=== PATIENT | female | born 1970 | race Caucasian/White ===

== ENCOUNTER 2016-12-08 05:39 | Day surgery (SDC) | payer BC ==
[~2016-12-08] VITALS: Ht 162.6 cm; Wt 104.3 kg
[~2016-12-08 05:39] MED LIST: SYNTHROID200 MCG PO; VENTOLIN HFA18 GM IH
[2016-12-08 06:00] VITALS: BP 111/64
[2016-12-08 15:57] VITALS: BP 103/58
[2016-12-08 19:30] VITALS: BP 113/62
[2016-12-08 23:21] VITALS: BP 90/53
[2016-12-09 03:20] VITALS: BP 97/49
[2016-12-09 07:16] VITALS: BP 95/52
[2016-12-09 07:24] LABS: HEMATOCRIT 30.7 % (36.0-46.0); MCH 33.2 PG (29.0-34.0); MCHC 34.2 G/DL (30.0-36.0); MCV 97.2 FL (83-99); MEAN PLAT.VOLUME 10.8 uM^3 (9.5-12.4); PLATELET COUNT 177 K/uL (156-360); RBC DIS.WIDTH-SD 46.5 % (39-53); WHITE BLOOD COUNT 10.6 K/uL (4.1-10.2)
[2016-12-09 07:26] LABS: RED BLOOD COUNT 3.16 M/uL (3.80-5.20)
[2016-12-09 07:45] LABS: ANION GAP 5 MEQ/L (2-14); CHLORIDE 108 MEQ/L (99-109); GFR ESTIMATE (CALCULATED) > 59 mL/min/; GLUCOSE 107 mg/dL (70-99); POTASSIUM 4.4 MEQ/L (3.7-5.4); SAMPLE HEMOLYSIS CHECK 0; SAMPLE ICTERIC CHECK 0; SAMPLE LIPEMIA CHECK 0; SODIUM 138 MEQ/L (136-147); UREA NITROGEN (BUN) 8 mg/dL (9-23)
[2016-12-09] MEDS ORDERED: ENDOCET 5-3251 EACH PO (09:38)
[2016-12-09] MEDS ORDERED: IBUPROFEN800 MG PO (09:38)
[2016-12-09 11:10] VITALS: BP 115/61
[2016-12-09 15:15] VITALS: BP 96/54
== END 2016-12-09 18:18 | disposition home or self-care (01) ==
LOC: SDC 05:39 → 2EASTP 10:50 → 2SOUTH 10:50 → SDC 14:16 → 2EASTP 15:52
PROVIDERS: Obstetrics & Gynecology
PROC: 0TSD0ZZ Reposition Urethra, Open Approach (ICD-10-PCS; principal; 2016-12-08)
PROC: 0UT74ZZ Resection of Bilateral Fallopian Tubes, Percutaneous Endoscopic Approach (ICD-10-PCS; principal; 2016-12-08)
PROC: 0UT14ZZ Resection of Left Ovary, Percutaneous Endoscopic Approach (ICD-10-PCS; principal; 2016-12-08)
PROC: 0UT94ZZ Resection of Uterus, Percutaneous Endoscopic Approach (ICD-10-PCS; principal; 2016-12-08)
PROC: 0UTC4ZZ Resection of Cervix, Percutaneous Endoscopic Approach (ICD-10-PCS; principal; 2016-12-08)
DX: D25.9 Leiomyoma of uterus, unspecified (principal); N39.3 Stress incontinence (female) (male); N80.0 Endometriosis of uterus; N72 Inflammatory disease of cervix uteri; N87.9 Dysplasia of cervix uteri, unspecified; N83.8 Other noninflammatory disorders of ovary, fallopian tube and broad ligament; N83.201 Unspecified ovarian cyst, right side; E03.9 Hypothyroidism, unspecified; E06.3 Autoimmune thyroiditis; N93.8 Other specified abnormal uterine and vaginal bleeding; E78.00 Pure hypercholesterolemia, unspecified; E66.9 Obesity, unspecified; Z68.39 Body mass index [BMI] 39.0-39.9, adult
CPT/HCPCS: 80048; 85027; 88305; 88307; C1771; G0378; J0330; J0690; J1100; J1170; J1885; J2250; J2270; J2405; J2710; J3010; J7120

== ENCOUNTER 2016-12-25 09:39 | Day surgery (SDC) | payer BC ==
[~2016-12-25] VITALS: Ht 162.6 cm; Wt 103.7 kg
[~2016-12-25 09:39] MED LIST changes: +ENDOCET 5-3251 EACH PO; +IBUPROFEN800 MG PO
[2016-12-25 10:11] LABS: HEMATOCRIT 38.4 % (36.0-46.0); MCHC 33.3 G/DL (30.0-36.0); MEAN PLAT.VOLUME 10.2 uM^3 (9.5-12.4); RBC DIS.WIDTH-CV 11.9 % (11.8-14.6); WHITE BLOOD COUNT 7.2 K/uL (4.1-10.2)
[2016-12-25 10:12] LABS: PLATELET COUNT 284 K/uL (156-360); RED BLOOD COUNT 4.13 M/uL (3.80-5.20)
[2016-12-25 10:30] LABS: CHLORIDE 110 mEq/L (99-109); SODIUM 140 mEq/L (136-147)
[2016-12-25 10:31] LABS: GLUCOSE 98 mg/dL (70-99)
[2016-12-25 10:33] LABS: ANION GAP 11 MEQ/L (2-14)
[2016-12-25 10:35] LABS: GFR ESTIMATE (CALCULATED) > 59 mL/min/
[2016-12-25 10:36] LABS: UREA NITROGEN (BUN) 21 mg/dL (9-23)
[2016-12-25 12:38] LABS: HEMATOCRIT 33.7 % (36.0-46.0); MCV 93.4 FL (83-99)
[2016-12-25 16:45] VITALS: BP 91/54
[2016-12-25 17:59] VITALS: BP 105/59
[2016-12-26 00:52] VITALS: BP 95/56
[2016-12-26 03:21] VITALS: BP 104/57
[2016-12-26 06:37] LABS: EOSINOPHIL (%) 0.6 % (0-5); EOSINOPHIL COUNT 0.1 K/uL (0-0.3); HEMATOCRIT 31.4 % (36.0-46.0); IMMATURE GRANULOCYTE (%) 0.3 % (0.0-0.7); INSTRUMENT ABS NEUTROPHIL CT 7.6 K/uL; LYMPHOCYTE COUNT 2.6 K/uL (1.0-2.8); MCHC 34.1 G/DL (30.0-36.0); MEAN PLAT.VOLUME 10.3 uM^3 (9.5-12.4); MONOCYTE COUNT 0.6 K/uL (0-0.8); NEUTROPHIL (%) 69.9 % (45-76); NEUTROPHIL COUNT 7.6 K/uL (1.8-6.4); PLATELET COUNT 270 K/uL (156-360); RBC DIS.WIDTH-CV 12.1 % (11.8-14.6); RBC DIS.WIDTH-SD 41.7 % (39-53); RED BLOOD COUNT 3.34 M/uL (3.80-5.20); WHITE BLOOD COUNT 10.9 K/uL (4.1-10.2)
[2016-12-26 07:30] VITALS: BP 94/50
[2016-12-26] MEDS ORDERED: ENDOCET 5-3251 EACH PO (09:24)
[2016-12-26] MEDS ORDERED: FLAGYL500 MG PO (09:48)
== END 2016-12-26 11:00 | disposition home or self-care (01) ==
LOC: EME 09:39 → 2EAST 13:20 → EME 13:20 → SDC 13:20 → 2SOUTH 14:20 → 2EAST 14:20 → ENRESERV 14:28 → 2EAST 17:12
PROVIDERS: Obstetrics & Gynecology
PROC: 0UQG7ZZ Repair Vagina, Via Natural or Artificial Opening (ICD-10-PCS; principal; 2016-12-25)
DX: N99.820 Postprocedural hemorrhage of a genitourinary system organ or structure following a genitourinary system procedure (principal); D62 Acute posthemorrhagic anemia; E06.3 Autoimmune thyroiditis; E78.00 Pure hypercholesterolemia, unspecified; I48.91 Unspecified atrial fibrillation; E55.9 Vitamin D deficiency, unspecified; R42 Dizziness and giddiness; G62.9 Polyneuropathy, unspecified; E66.9 Obesity, unspecified; Z68.39 Body mass index [BMI] 39.0-39.9, adult
CPT/HCPCS: 74177; 80048; 85014; 85018; 85025; 85027; 86900; 86901; 99281; 99285; G0378; J0690; J1100; J1170; J2250; J2270; J2405; J3010; J7030